=== PATIENT | male | born 1965 | race Caucasian/White ===

== ENCOUNTER 2018-11-30 22:44 | Emergency (ER) | payer BC ==
[2018-11-30] MEDS ORDERED: Aspirin 81 MG Tab.Chew PO ONE (23:33)
[2018-11-30] MEDS ORDERED: Nitroglycerin 0.4 MG Tab.SL SL PRN (23:33)
--- NOTE | 2018-12-01 01:04 | EDM.PDOC ---
ED HPI GENERAL MEDICAL PROBLEM - General Chief Complaint: Chest Pain Stated Complaint: CHEST TIGHTNESS/L ARM NUMB Time Seen by Provider: 11/30/18 22:50 - History of Present Illness INITIAL COMMENTS - FREE TEXT/NARRATIVE: 53-year-old male presents emergency room with chest pain chest pressure and left -sided numbness in his upper and lower extremity. This pain has been going on for quite some time now perhaps a couple weeks on an on-and-off basis progressively getting worse this afternoon tonight patient states he had a normal stress test about 2 years ago. Upon arrival here his chest pressure is gone and he has no more pain he has a little bit of tingling in his fingers and upper arm below the level of the elbow and below his knee and into his foot only on the left side he's had no breathing difficulties or shortness of breath or diaphoresis with this. The patient quit smoking 20 years ago Epigastric Pain Score (Numeric/FACES): 2 - Related Data Allergies Allergy/AdvReac Type Severity Reaction Status Date / Time lisinopril Allergy Edema Verified 11/30/18 22:53 Home Meds: Home Meds Aspirin 81 mg PO DAILY 11/30/18 [History] Omeprazole 20 mg PO DAILY 11/30/18 [History] Past Medical History Cardiovascular History: Reports: High Cholesterol, Hypertension Gastrointestinal History: Reports: GERD - Past Surgical History GI Surgical History: Reports: Appendectomy Social & Family History - Tobacco Use Smoking Status *Q: Former Smoker Used Tobacco, but Quit: Yes Month/Year Tobacco Last Used: 2008 - Caffeine Use Caffeine Use: Reports: None - Recreational Drug Use Recreational Drug Use: No ED ROS GENERAL - Review of Systems Review Of Systems: See Below Constitutional: Reports: No Symptoms HEENT: Reports: No Symptoms Respiratory: Reports: No Symptoms Cardiovascular: Reports: Chest Pain, Dyspnea on Exertion. Denies: Blood Pressure Problem, Lightheadedness, Palpitations, Syncope Endocrine: Reports: No Symptoms GI/Abdominal: Reports: No Symptoms : Reports: No Symptoms Musculoskeletal: Reports: No Symptoms Skin: Reports: No Symptoms Neurological: Reports: Other (His numbness in his left upper and lower extremity is not well understood seems to come and go) Psychiatric: Reports: No Symptoms Hematologic/Lymphatic: Reports: No Symptoms Immunologic: Reports: No Symptoms ED EXAM, GENERAL - Physical Exam Exam: See Below Exam Limited By: No Limitations General Appearance: Alert, No Apparent Distress Eye Exam: Bilateral Eye: Normal Inspection Throat/Mouth: Normal Inspection, Normal Lips, Normal Teeth, Normal Gums, Normal Oropharynx, Normal Voice, No Airway Compromise Head: Atraumatic, Normocephalic Neck: Normal Inspection, Supple, Non-Tender, Full Range of Motion. No: Lymphadenopathy (L), Lymphadenopathy (R) Respiratory/Chest: No Respiratory Distress, Lungs Clear, Normal Breath Sounds Cardiovascular: Regular Rate, Rhythm, No Edema, No Murmur GI/Abdominal: Normal Bowel Sounds, Soft, Non-Tender, No Organomegaly, No Distention, Other (Significant obesity) Neurological: Alert, Oriented, Normal Cognition, Other (Cranial or cervical grossly intact all muscle groups in upper and lower extremities recall appropriate bilaterally deep tendon reflexes are equal and appropriate at the brachioradialis bilaterally cerebellar testing is within normal limits gait is normal) Psychiatric: Normal Affect, Normal Mood Lymphatic: No Adenopathy EKG INTERPRETATION EKG Date: 11/30/18 Rhythm: NSR [place]: LAD-Left [place] Deviation P-Wave: Present ST-T: Depressed (Borderline ST depression in the anterior septal and lateral leads this was also noted in lead 2 to a lesser degree leads 3 and aVF) QT: Normal Course - Vital Signs Last Recorded V/S: Last Vital Signs Temp 36.6 C 11/30/18 22:48 Pulse 74 11/30/18 22:48 Resp 17 11/30/18 22:48 BP 137/88 11/30/18 22:48 Pulse Ox 98 11/30/18 22:48 - Orders/Labs/Meds Orders: Active Orders 24 hr Category Date Time Status EKG Documentation Completion [RC] ASDIRECTED Care 11/30/18 22:56 Active Chest 1V Frontal [CR] Stat Exams 11/30/18 23:16 Taken Nitroglycerin [Nitrostat] Med 11/30/18 23:33 Active 0.4 mg SL Q5M PRN EKG 12 Lead [EK] Stat Ther 11/30/18 22:56 Ordered Medication Orders Nitroglycerin (Nitrostat) 0.4 mg SL Q5M PRN PRN Reason: Chest Pain Labs: Laboratory Tests 11/30/18 11/30/18 11/30/18 Range/Units 23:00 23:00 23:00 WBC 6.44 (4.23-9.07) K/mm3 RBC 4.83 (4.63-6.08) M/mm3 Hgb 14.2 (13.7-17.5) gm/L Hct 41.7 (40.1-51.0) % MCV 86.3 (79.0-92.2) fl MCH 29.4 (25.7-32.2) pg MCHC 34.1 (32.2-35.5) g/dl RDW Std Deviation 39.8 (35.1-43.9) fL Plt Count 181 (163-337) K/mm3 MPV 9.9 (9.4-12.3) fl Neut % (Auto) 64.1 (34.0-67.9) % Lymph % (Auto) 22.7 (21.8-53.1) % Newberry % (Auto) 10.2 (5.3-12.2) % Eos % (Auto) 2.3 (0.8-7.0) Baso % (Auto) 0.5 (0.1-1.2) % Neut # (Auto) 4.13 (1.78-5.38) K/mm3 Lymph # (Auto) 1.46 (1.32-3.57) K/mm3 Newberry # (Auto) 0.66 (0.30-0.82) K/mm3 Eos # (Auto) 0.15 (0.04-0.54) K/mm3 Baso # (Auto) 0.03 (0.01-0.08) K/mm3 PT (9.5-12.1) SECONDS INR APTT (24-31) SECONDS D-Dimer, Quantitative 0.22 (0.19-0.50) mg/L Sodium 139 (136-145) mEq/L Potassium 3.6 (3.5-5.1) mEq/L Chloride 102 (98-107) mEq/L Carbon Dioxide 31 (21-32) mEq/L Anion Gap 9.6 (5-15) BUN 23 H (7-18) mg/dL Creatinine 0.9 (0.7-1.3) mg/dL Est Cr Clr Drug Dosing 117.88 mL/min Estimated GFR (MDRD) > 60 (>60) mL/min BUN/Creatinine Ratio 25.6 H (14-18) Glucose 131 H (74-106) mg/dL Calcium 8.9 (8.5-10.1) mg/dL Total Bilirubin 0.3 (0.2-1.0) mg/dL AST 12 L (15-37) U/L ALT 37 (16-63) U/L Alkaline Phosphatase 76 (46-116) U/L Troponin I < 0.017 (0.00-0.056) ng/mL Total Protein 6.9 (6.4-8.2) g/dl Albumin 3.9 (3.4-5.0) g/dl Globulin 3.0 gm/dL Albumin/Globulin Ratio 1.3 (1-2) Lipase 102 (73-393) U/L 11/30/18 Range/Units 23:00 WBC (4.23-9.07) K/mm3 RBC (4.63-6.08) M/mm3 Hgb (13.7-17.5) gm/L Hct (40.1-51.0) % MCV (79.0-92.2) fl MCH (25.7-32.2) pg MCHC (32.2-35.5) g/dl RDW Std Deviation (35.1-43.9) fL Plt Count (163-337) K/mm3 MPV (9.4-12.3) fl Neut % (Auto) (34.0-67.9) % Lymph % (Auto) (21.8-53.1) % Newberry % (Auto) (5.3-12.2) % Eos % (Auto) (0.8-7.0) Baso % (Auto) (0.1-1.2) % Neut # (Auto) (1.78-5.38) K/mm3 Lymph # (Auto) (1.32-3.57) K/mm3 New[place] # (Auto) (0.30-0.82) K/mm3 Eos # (Auto) (0.04-0.54) K/mm3 Baso # (Auto) (0.01-0.08) K/mm3 PT 10.6 (9.5-12.1) SECONDS INR 0.97 APTT 27 (24-31) SECONDS D-Dimer, Quantitative (0.19-0.50) mg/L Sodium (136-145) mEq/L Potassium (3.5-5.1) mEq/L Chloride (98-107) mEq/L Carbon Dioxide (21-32) mEq/L Anion Gap (5-15) BUN (7-18) mg/dL Creatinine (0.7-1.3) mg/dL Est Cr Clr Drug Dosing mL/min Estimated GFR (MDRD) (>60) mL/min BUN/Creatinine Ratio (14-18) Glucose (74-106) mg/dL Calcium (8.5-10.1) mg/dL Total Bilirubin (0.2-1.0) mg/dL AST (15-37) U/L ALT (16-63) U/L Alkaline Phosphatase (46-116) U/L Troponin I (0.00-0.056) ng/mL Total Protein (6.4-8.2) g/dl Albumin (3.4-5.0) g/dl Globulin gm/dL Albumin/Globulin Ratio (1-2) Lipase (73-393) U/L Meds: Medications Generic Name Dose Route Start Last Admin Trade Name Freq PRN Reason Stop Dose Admin Nitroglycerin 0.4 mg 11/30/18 23:33 Nitrostat SL Q5M PRN Chest Pain Discontinued Medications Generic Name Dose Route Start Last Admin Trade Name Freq PRN Reason Stop Dose Admin Aspirin 324 mg 11/30/18 23:33 11/30/18 23:38 Aspirin PO 11/30/18 23:34 324 mg ONETIME ONE Administration - Re-Assessments/Exams Free Text/Narrative Re-Assessment/Exam: 12/01/18 01:09 Patient is been pain-free here in the emergency department he did not need any nitroglycerin was given 325 of aspirin chest x-ray is nondiagnostic perhaps borderline cardiomegaly EKG is concerning for some borderline ST depression in the inferior anterior septal and lateral leads. Also of concern is his patient' s persistent numbness in his left upper and lower extremities. Offered further evaluation and workup to the patient and this is declined we had this discussion several times. He agrees to follow-up when he gets home around the December and have a stress test done but that still doesn't explain what could be causing the numbness in his left and right arm he could have a lot to do with the fact that he was ready to dose her on very hard dirt today however I cannot exclude neurologic causes of this patient understands this and agrees to follow-up Departure - Departure Time of Disposition: 01:11 Disposition: Left Without Being Seen 07 Clinical Impression: Chest pain, Numbness on left side Referrals: PCP,Not In Area [Primary Care Provider] - Additional Instructions: Return to the emergency room with any questions problems worsening symptoms. Continue daily aspirin follow-up with your regular physician as soon as you can. - My Orders Last 24 Hours: My Active Orders 11/30/18 22:56 EKG Documentation Completion [RC] ASDIRECTED EKG 12 Lead [EK] Stat 11/30/18 23:16 Chest 1V Frontal [CR] Stat 11/30/18 23:33 Nitroglycerin [Nitrostat] 0.4 mg SL Q5M PRN - Assessment/Plan Last 24 Hours: My Active Orders 11/30/18 22:56 EKG Documentation Completion [RC] ASDIRECTED EKG 12 Lead [EK] Stat 11/30/18 23:16 Chest 1V Frontal [CR] Stat 11/30/18 23:33 Nitroglycerin [Nitrostat] 0.4 mg SL Q5M PRN
--- NOTE | 2018-12-01 08:04 | CR ---
Chest: Portable view of the chest was obtained. Comparison: No previous chest x-ray. Size and mediastinum are normal. Lungs are clear. Bony structures are grossly intact. Impression: 1. Nothing acute is seen on portable chest x-ray. Diagnostic code #1
== END 2018-12-01 01:21 | disposition home or self-care (01) ==
LOC: JD.ED 22:44
DX: R07.89 Other chest pain (principal); E78.00 Pure hypercholesterolemia, unspecified; I10 Essential (primary) hypertension; K21.9 Gastro-esophageal reflux disease without esophagitis; R20.0 Anesthesia of skin; Z87.891 Personal history of nicotine dependence; Z88.8 Allergy status to other drugs, medicaments and biological substances; Z79.82 Long term (current) use of aspirin; Z79.899 Other long term (current) drug therapy
CPT/HCPCS: 36415; 71045; 80053; 83690; 84484; 85025; 85379; 85610; 85730; 93005; 99285; A9270; 93010; 99284